=== PATIENT | male | born 1995 | race Caucasian/White ===

== ENCOUNTER 2017-07-18 20:40 | Emergency (ER) | payer OTHER ==
[~2017-07-18] VITALS: Ht 195.6 cm; Wt 93.6 kg
[2017-07-18 20:57] VITALS: BP 150/79
== END 2017-07-18 22:50 | disposition home or self-care (01) ==
LOC: ED 22:45
DX: S93.402A Sprain of unspecified ligament of left ankle, initial encounter (principal); X50.1XXA Overexertion from prolonged static or awkward postures, initial encounter; Y93.67 Activity, basketball; Y92.009 Unspecified place in unspecified non-institutional (private) residence as the place of occurrence of the external cause; Y99.8 Other external cause status
CPT/HCPCS: 99284